=== PATIENT | female | born 1940 | race Asian ===

== ENCOUNTER 2016-10-12 20:49 | Emergency (ER) | payer MEDICARE, OTHER ==
[~2016-10-12] VITALS: Ht 152.4 cm; Wt 56.0 kg
[2016-10-12 21:10] VITALS: Ht 152.4 cm; Wt 56.0 kg
[2016-10-13] MEDS ORDERED: SOD CHLORIDE 0.9% 1,000 ML IV ONE ×2 (02:30→07:00)
[2016-10-13 03:25] LABS: ADD UMIC YES; URINE BILIRUBIN (Dip) NEGATIVE (NEGATIVE); URINE BLOOD (Dip) 2+ (NEGATIVE); URINE COLOR LT. YELLOW (YELLOW); URINE GLUCOSE (Dip) NEGATIVE (NEGATIVE); URINE KETONES (Dip) NEGATIVE (NEGATIVE); URINE LEUKOCYTE ESTERASE (Dip) TRACE (NEGATIVE); URINE NITRITE (Dip) NEGATIVE (NEGATIVE); URINE TOTAL PROTEIN (Dip) TRACE (NEGATIVE); URINE UROBILINOGEN (Dip) 0.2 E.U./dL (0.1-1.0)
[2016-10-13 03:48] LABS: ALBUMIN 3.8 g/dl (3.3-4.9)
[2016-10-13 03:49] LABS: POTASSIUM 4.3 mmol/L (3.5-5.1)
[2016-10-13 03:50] LABS: BASOPHILS % 0.3 % (0.0-2.0); HEMATOCRIT 33.1 % (37.0-47.0); HEMOGLOBIN 11.5 g/dl (12.0-16.0); LYMPHOCYTES # 1.3 10^3/ul (0.8-2.9); MEAN CORPUSCULAR HEMOGLOBIN 31.8 pg (29.0-33.0); MEAN CORPUSCULAR HGB CONC 34.8 g/dl (32.0-37.0); MEAN CORPUSCULAR VOLUME 91.3 fl (82.0-101.0); MONOCYTE # 0.9 10^3/ul (0.3-0.9); NEUTROPHIL # 6.8 10^3/ul (1.6-7.5); NEUTROPHILS % 75.7 % (39.0-77.0); PLATELET COUNT 205 10^3/UL (140-440); RED BLOOD COUNT 3.63 10^6/ul (4.20-5.40); RED CELL DISTRIBUTION WIDTH 12.7 % (11.5-14.5)
[2016-10-13 03:51] LABS: ALBUMIN/GLOBULIN RATIO 1.22; BILIRUBIN,INDIRECT 0.2 mg/dl (0-1.1); BILIRUBIN,TOTAL 0.2 mg/dl (0.2-1.3); CREATININE 1.18 mg/dl (0.44-1.00); TOTAL PROTEIN 6.9 g/dl (6.1-8.1)
[2016-10-13 03:52] LABS: CALCIUM 9.1 mg/dl (8.4-10.2)
--- NOTE | 2016-10-13 03:55 | RADRPT ---
PROCEDURE: CT Abdomen and pelvis without contrast. CLINICAL INDICATION: Abdominal pain. TECHNIQUE: CT scan of the abdomen and pelvis was performed on a multi-detector high-resolution CT scanner. Contiguous axial images were obtained from the lung bases to the ischial tuberosities wit hout intravenous contrast. Coronal and sagittal reformatted images were also obtained. Images were reviewed on the PACS workstation. One or more of the following dose reduction techniques were used: - Automated exposure control. - Adjustment of the mA and/or kV according to patient size. - Use of iterative reconstruction technique. Exam CTD/vol = 7.88 mGy. Total exam DLP = 427.44 mGy-cm. COMPARISON: None. FINDINGS: Evaluation of the lung bases demonstrates mild bibasilar atelectasis. Abdomen: The liver is normal in size. There is no focal mass or dilatation of the biliary tree. T he gallbladder is not distended. The spleen, pancreas and left adrenal gland are within normal limi ts. There are right adrenal calcifications. Bilateral kidneys are normal in size with no contour d eforming mass identified. There is no radiopaque renal or ureteral calculus identified. There is n o hydronephrosis or hydroureter. There is no retroperitoneal adenopathy. The abdominal aorta is of normal caliber with scattered atherosclerotic calcifications. There is no abnormal bowel wall thickening or distension. There is no bowel obstruction or free air . A normal appendix is identified. There is no diverticulosis or diverticulitis. There is no asci david. Pelvis: The bladder is unremarkable. The uterus and adnexa are within normal limits. There is no significant pelvic adenopathy or free fluid. Evaluation of the osseous structures demonstrates no suspicious lytic or blastic lesion. IMPRESSION: No acute abnormality identified within the abdomen and pelvis. Right adrenal calcifications suggestive of old infectious/inflammatory or hemorrhagic process. Vascular calcifications reflective of atherosclerosis. Mild bibasilar atelectasis. .Matias Tirado MD, MD Date Time Electronically viewed and signed by .Matias Tirado MD, MD on 10/13/2016 03:55 .T/
[2016-10-13 04:00] LABS: BACTERIA,URINE FEW; SQUAMOUS EPITHELIAL CELL,UR FEW
[2016-10-13 04:19] LABS: CONDITION 1
[2016-10-13] MEDS ORDERED: LIDOCAINE/MYLANTA 40 ML BTL PO ONE (05:30)
[2016-10-13 06:01] LABS: HEMATOCRIT 30.2 % (37.0-47.0); HEMOGLOBIN 10.4 g/dl (12.0-16.0)
[2016-10-13] MEDS ORDERED: ONDA4TAB11 PO (06:23)
[2016-10-13] MEDS ORDERED: FER325 PO (06:23)
[2016-10-13] MEDS ORDERED: RANI150T9 PO (06:23)
--- NOTE | 2016-10-13 06:34 | ERD ---
ER Documentation Chief Complaint Date/Time DATE: 10/13/16 TIME: 06:28 Chief Complaint black stools today, constipatedtoday, coufgh x 3 days HPI This 76-year-old female has had 2 days of black stool. She has a total of approximately 2-3 bowel movements that were dark in color. She has had no nausea or vomiting. Does have mild upper abdominal pain is not made worse or better by anything in particular. Also had a mild cough that has resolved she has no history of GI bleeding or ulcers that she knows of. She does have good primary care follow-up. She denies any chest pain and dizziness. She is accompanied by her grandson. ROS All systems reviewed and are negative except as per history of present illness. Medications Home Meds Active Scripts Ranitidine Hcl* (Zantac*) 150 Mg Tablet, 150 MG PO BID, #60 TAB Prov:HELIO GOLDSMITH DO 10/13/16 Ferrous Sulfate* (Ferrous Sulfate*) 325 Mg Tabec, 325 MG PO DAILY, #30 TAB Prov:RUPALHELIO 10/13/16 Ondansetron (Zofran Odt) 4 Mg Tab.rapdis, 4 MG PO Q6, #10 Prov:HELIO GOLDSMITH DO 10/13/16 Allergies Allergies: Coded Allergies: No Known Allergy (Unverified , 10/12/16) PMhx/Soc Hx Alcohol Use: No Hx Substance Use: No Hx Tobacco Use: No Smoking Status: Never smoker Physical Exam Vitals Vital Signs Date Time Temp Pulse Resp B/P Pulse Ox O2 Delivery O2 Flow Rate FiO2 10/13/16 02:58 101.9 85 20 126/56 96 10/12/16 21:10 98.3 81 20 147/67 96 Physical Exam Const: [] No distress Head: Atraumatic Eyes: Normal Conjunctiva, EOMI, Barbara ENT: Normal External Ears, Nose and Mouth. Neck: Full range of motion..~ No meningismus. Resp: Clear to auscultation bilaterally Cardio: Regular rate and rhythm, no murmurs Abd: Soft, very mild diffuse tenderness without guarding or rebound, able to smile during the exam,, non distended. Normal bowel sounds Skin: No petechiae or rashes Back: No midline or flank tenderness Ext: No cyanosis, or edema Neur: Awake and alert and oriented 3, no focal deficit Result Diagram: 10/13/16 0515 10/13/16 0328 Results 24 hrs Laboratory Tests Test 10/13/16 02:39 10/13/16 03:28 10/13/16 05:15 Urine Bacteria FEW Urine Bilirubin NEGATIVE Urine Clarity SL HAZY Urine Color LT. YELLOW Urine Glucose NEGATIVE% Urine Hemoglobin 2+ Urine Ketones NEGATIVE Urine Leukocyte Esterase TRACE Urine Microscopic RBC 5-10/HPF Urine Microscopic WBC 2-5/HPF Urine Nitrite NEGATIVE Urine Specific [place] 1.015 Urine Squamous Epithelial Cells FEW Urine Total Protein TRACE Urine Urobilinogen 0.2 E.U./dL Urine pH 5.5 Alanine Aminotransferase (ALT/SGPT) 38IU/L Albumin 3.8g/dl Albumin/Globulin Ratio 1.22 Alkaline Phosphatase 65IU/L Anion Gap 18 Aspartate Amino Transf (AST/SGOT) 32IU/L Basophils # 0.010^3/ul Basophils % 0.3% Blood Urea Nitrogen 22mg/dl Calcium Level 9.1mg/dl Carbon Dioxide Level 21mmol/L Chloride Level 100mmol/L Creatinine 1.18mg/dl Direct Bilirubin 0.00mg/dl Eosinophils # 0.010^3/ul Eosinophils % 0.0% Globulin 3.10g/dl Glucose Level 212mg/dl Hematocrit 33.1% 30.2% Hemoglobin 11.5g/dl 10.4g/dl Indirect Bilirubin 0.2mg/dl Lipase 160U/L Lymphocytes # 1.310^3/ul Lymphocytes % 14.0% Mean Corpuscular Hemoglobin 31.8pg Mean Corpuscular Hemoglobin Concent 34.8g/dl Mean Corpuscular Volume 91.3fl Mean Platelet Volume 8.0fl Monocytes # 0.910^3/ul Monocytes % 10.0% Neutrophils # 6.810^3/ul Neutrophils % 75.7% Nucleated Red Blood Cells # 0.010^3/ul Nucleated Red Blood Cells % 0.0/100WBC Platelet Count 32645^3/UL Potassium Level 4.3mmol/L Red Blood Count 3.6310^6/ul Red Cell Distribution Width 12.7% Sodium Level 135mmol/L Total Bilirubin 0.2mg/dl Total Protein 6.9g/dl White Blood Count 9.010^3/ul Current Medications Medications (Trade) Dose Ordered Sig/Devendra Route PRN Reason Start Time Stop Time Status Last Admin Dose Admin Sodium Chloride (NS) 1,000 ml @ 1,000 mls/hr Q1H ONCE IV 10/13/16 02:30 10/13/16 03:29 DC 10/13/16 02:45 Miscellaneous Medication (Gi Cocktail (2)) 40 ml ONCE ONCE PO 10/13/16 05:30 10/13/16 05:31 DC 10/13/16 05:26 Procedures/MDM Stable rectal bleed in 76-year-old female. Possible gastritis versus ulcer. Patient did have mild pain and was given a GI cocktail. She was asymptomatic in the emergency room with hemoglobin of 11.5. Repeat hemoglobin after a liter of fluid showed 10.4 hemoglobin she had been given a liter of normal saline. Patient declined admission for further workup and prefers to do it through her doctor. Because she would like to go home and would not want to stay in the hospital because she feels well going to discharge her with GI follow-up and PCP follow-up. The muscle discharging her with Zofran in case she develops nausea so that she can hydrate and iron pills for the anemia. I am also discharging her with Zantac for possible ulcerative lesions. Given return precautions emergency room for any continued significant rectal bleeding black stools or if she develops lightheadedness weakness or worsening pain. Departure Diagnosis: Primary Impression: Abdominal pain Additional Impressions: Rectal bleeding Renal insufficiency Condition: Stable Patient Instructions: Rectal Bleed, Stable Additional Instructions: Call your primary care doctor TOMORROW for an appointment during the next 1-2 days. Obtain a referral for a [facility] [employer] WITHIN THE NEXT WEEK. See the doctor sooner or return here if your condition worsens before your appointment time. HELIO GOLDSMITH DO Oct 13, 2016 06:34
[2016-10-13] MEDS ORDERED: morphine 4 MG/ML VIAL IV STA (06:35)
[2016-10-13 06:45] VITALS: BP 105/49; PULSE 78; RESP 18; TEMP 98.9
[2016-10-13] MEDS ORDERED: CEFTRIAXONE 1 GM/50 ML (PMX) 50 ML IVPB ONE (07:00)
[2016-10-13] MEDS ORDERED: metroNIDAZOLE 500 MG/NS (PMX) 100 ML IVPB ONE (07:00)
== END 2016-10-13 06:45 | disposition home or self-care (01) ==
LOC: E/R 20:49
DX: R10.84 Generalized abdominal pain (principal); K62.5 Hemorrhage of anus and rectum; N28.9 Disorder of kidney and ureter, unspecified; I10 Essential (primary) hypertension
CPT/HCPCS: 74176; 80053; 81001; 83690; 85014; 85018; 85025; J7030; 36415; 81003